=== PATIENT | female | born 1960 | race Two or more races ===

== ENCOUNTER 2018-05-02 15:00 | Emergency (ER) | payer MEDICAID ==
[2018-05-02] MEDS: CEPHALEXIN 500 MG CAP PO (15:27)
[2018-05-02] MEDS: DIPHTH/TET/ACEL PERTUSS (ADULT) 0.5 ML VIAL IM* (15:28)
== END 2018-05-02 15:54 | disposition home or self-care (01) ==
LOC: FTE 15:00
DX: S91.114A Laceration without foreign body of right lesser toe(s) without damage to nail, initial encounter (principal); I10 Essential (primary) hypertension; E11.9 Type 2 diabetes mellitus without complications; S90.414A Abrasion, right lesser toe(s), initial encounter; W26.8XXA Contact with other sharp object(s), not elsewhere classified, initial encounter; Y92.9 Unspecified place or not applicable; Z23 Encounter for immunization
CPT/HCPCS: 90471; 90715; 99283-25